=== PATIENT | female | born 1960 | race Caucasian/White ===

== ENCOUNTER 2018-07-26 07:06 | Day surgery (SDC) | payer BC ==
[2018-07-24 12:22] LABS: BASOPHILS # (AUTO) 0.1 X10'3 (0-0.2); BASOPHILS % (AUTO) 0.8 % (0-1); EOSINOPHILS # (AUTO) 0.1 X10'3 (0-0.9); EOSINOPHILS % (AUTO) 1.4 % (0-6); LYMPHOCYTES # (AUTO) 2.3 X10'3 (1.1-4.8); LYMPHOCYTES % (AUTO) 37.8 % (21-51); MEAN CORPUSCULAR HEMOGLOBIN 30.1 PG (27.0-31.0); MEAN CORPUSCULAR HGB CONC 33.2 % (33.0-36.5); MEAN CORPUSCULAR VOLUME 90.6 FL (78-98); MEAN PLATELET VOLUME 8.2 FL (7.4-10.4); MONOCYTES # (AUTO) 0.6 X10'3 (0-0.9); MONOCYTES % (AUTO) 9.5 % (2-12); NEUTROPHILS # (AUTO) 3.1 X10'3 (1.8-7.7); NEUTROPHILS % (AUTO) 50.5 % (42-75); PRE OP HEMATOCRIT 40.9 % (35.0-45.0); PRE OP HEMOGLOBIN 13.6 g/dL (12.0-16.0); PRE OP PLATELET COUNT 269 X10'3 (140-440); RED BLOOD COUNT 4.51 X10'6 (4.20-5.60); RED CELL DISTRIBUTION WIDTH 13.3 % (11.5-14.5)
[2018-07-24 12:37] LABS: ALBUMIN 3.5 G/DL (3.4-5.0); ALBUMIN/GLOBULIN RATIO 1.1 (1.1-1.5); ALKALINE PHOSPHATASE 81 IU/L (46-116); BLOOD UREA NITROGEN 9 MG/DL (7-18); BUN/CREATININE RATIO 10.1 (6.6-38.0); CALCIUM 8.8 MG/DL (8.5-10.1); CHLORIDE 106 MMOL/L (99-107); CREATININE 0.89 MG/DL (0.40-0.90); PRE OP ALT 63 U/L (30-65); PRE OP ANION GAP 9 (8-16); PRE OP AST 24 U/L (10-37); PRE OP BILIRUB, TOTAL 0.3 MG/DL (0.0-1.0); PRE OP GLUCOSE 103 MG/DL (70-104); PRE OP POTASSIUM 4.1 MMOL/L (3.4-5.1); PRE OP SODIUM 141 MMOL/L (135-145); TOTAL CARBON DIOXIDE 26.5 MMOL/L (24-32); TOTAL PROTEIN 6.8 G/DL (6.4-8.2); eGFR 66 ML/MIN
[2018-07-24 12:41] LABS: PRE OP PROTIME 10.6 SECONDS (9.0-12.0)
[~2018-07-26] VITALS: Ht 162.6 cm; Wt 83.3 kg
[2018-07-26] VITALS (19 sets, daily range): BP systolic 94–121; BP diastolic 46–62
[~2018-07-26 07:06] MED LIST: NO HOME MEDS; cefazolin/dext.iso 2gm/100 ML IV ONE; famotidine 20mg tablet PO ONE; vancomycin inj 1,500 MG in normal saline 300ml IV soln IV ONE
[2018-07-26] MEDS ORDERED: LIDOcaine 1% (10mg/ml) 2ml vial ONE (07:24)
[2018-07-26] MEDS ORDERED: cefazolin/dext.iso 2gm/100 ML IV ONE (07:30)
[2018-07-26] MEDS: ringers solution, lacted 1,000 ML IV SCH ×2 (07:56→14:19)
[2018-07-26] MEDS ORDERED: ringers solution, lacted 1,000 ML IV SCH (08:12)
[2018-07-26] MEDS ORDERED: ondansetron/PF 4mg/2ml inj IV PRN ×2 (08:15→12:10)
[2018-07-26] MEDS ORDERED: proCHLORperazine 10 MG/2 ml inj IV PRN (08:15)
[2018-07-26] MEDS ORDERED: meperidine/PF 25mg/ml syringe IV PRN ×3 (08:15)
[2018-07-26] MEDS ORDERED: morphine 4 MG/ML inj SYRINge IV PRN ×2 (08:15)
[2018-07-26] MEDS ORDERED: BUPIVAcaine/PF 2.5mg/ml (0.25%) 10ml vial ONE (09:43)
[2018-07-26] MEDS ORDERED: aprepitant 40mg capsule PO ONE (09:44)
[2018-07-26] MEDS ORDERED: sevoflurane 250ml liquid IH ONE (09:57)
[2018-07-26] MEDS ORDERED: dexamethasone sod phosphate 10mg/ml inj ONE (09:57)
[2018-07-26] MEDS ORDERED: fentaNYL/PF 50MCG/1 ML 2ML syringe ONE (09:58)
[2018-07-26] MEDS ORDERED: MIDAZolam 5mg/5ml vial ONE (10:00)
[2018-07-26] MEDS ORDERED: ROPIVAcaine 0.5% (5mg/ml) 30ml vial ONE (10:01)
[2018-07-26] MEDS ORDERED: propofol inj 20 ML IV ONE (10:01)
[2018-07-26] MEDS ORDERED: LIDOcaine 1%/PF 5ML 10 MG/ML VIAL ONE (10:01)
[2018-07-26] MEDS ORDERED: rocuronium 10mg/ml inj IV ONE (10:02)
[2018-07-26] MEDS ORDERED: ondansetron/PF 4mg/2ml inj ONE (10:24)
[2018-07-26] MEDS ORDERED: HYDROcodone/acetaminophen 10/325mg tab PO PRN ×2 (12:10)
[2018-07-26] MEDS ORDERED: magnesium hydroxide 30ml (MOM) UD suspension PO PRN (12:10)
[2018-07-26] MEDS ORDERED: HYDROmorphone 1 mg/ml syringe IV PRN (12:10)
[2018-07-26] MEDS ORDERED: acetaminophen 325mg tablet PO PRN (12:10)
[2018-07-26] MEDS ORDERED: diphenhydrAMINE 25mg capsule PO PRN ×2 (12:10)
[2018-07-26] MEDS ORDERED: bisacodyl 10mg suppository rectal RC PRN (12:10)
[2018-07-26] MEDS: potassium Cl 20mEq in NS 1,000 ML IV SCH (14:26)
[2018-07-26] MEDS: ketorolac trometh. 30mg/ml inj. IV SCH ×2 (14:26→20:47)
[2018-07-26] MEDS: clindamycin 600mg/D5W 50ml 50 ML IV SCH ×2 (14:51→20:47)
[2018-07-26] MEDS: ceFAZolin 1GM/D5W- ADD-VANTAGE 50 ML IV SCH (17:00)
[2018-07-26] MEDS: aspirin 81mg tab.chew PO SCH (18:00)
[2018-07-26] MEDS ORDERED: sennosides 8.6mg tablet PO SCH (21:00)
[2018-07-27 02:00] VITALS: BP 104/47
[2018-07-27] MEDS ORDERED: ceFAZolin 1GM/D5W- ADD-VANTAGE 50 ML IV ONE (02:15)
[2018-07-27] MEDS: ceFAZolin 1GM/D5W- ADD-VANTAGE 50 ML IV SCH (02:19)
[2018-07-27] MEDS: potassium Cl 20mEq in NS 1,000 ML IV SCH ×2 (02:19→13:12)
[2018-07-27] MEDS: ketorolac trometh. 30mg/ml inj. IV SCH ×2 (02:20→08:07)
[2018-07-27 06:00] VITALS: BP 106/52
[2018-07-27] MEDS: aspirin 81mg tab.chew PO SCH (08:07)
[2018-07-27 10:00] VITALS: BP 114/55
[2018-07-27] MEDS ORDERED: ASPI-1265 PO (13:25)
[2018-07-27] MEDS ORDERED: HYDR-4383 PO (13:25)
== END 2018-07-27 16:05 | disposition home or self-care (01) ==
LOC: PAS 07:06 → ORTHO 4S 12:07 → PAS 07-27 16:05
PROVIDERS: ATTEND Orthopaedic Surgery
DX: M76.61 Achilles tendinitis, right leg (principal); M89.8X7 Other specified disorders of bone, ankle and foot; M21.6X1 Other acquired deformities of right foot; F41.8 Other specified anxiety disorders; G89.18 Other acute postprocedural pain; E66.9 Obesity, unspecified; Z79.82 Long term (current) use of aspirin; Z90.49 Acquired absence of other specified parts of digestive tract; Z68.31 Body mass index [BMI] 31.0-31.9, adult; Z86.69 Personal history of other diseases of the nervous system and sense organs; Z79.891 Long term (current) use of opiate analgesic; Z98.890 Other specified postprocedural states; Z79.899 Other long term (current) drug therapy
CPT/HCPCS: 27650; 28119; 36415; 64450; 80053; 85025; 85610; 85730; 93005; 97116; 97162; 97530; A6223; A6449; C1713; J0690; J1100; J1885; J2001; J2250; J2405; J2704; J3010; J3370; J3490; J7120; J8501; A7000; G0378; J2795